=== PATIENT | female | born 1960 | race Two or more races ===

== ENCOUNTER 2020-01-27 12:23 | Emergency (ER) | payer OTHER ==
[~2020-01-27] VITALS: Ht 165.1 cm; Wt 83.5 kg
[2020-01-27] MEDS ORDERED: CARTIA XT300 MG (12:32)
[2020-01-27] MEDS ORDERED: TAMOXIFEN CITRA20 MG (12:33)
== END 2020-01-27 16:29 | disposition home or self-care (01) ==
LOC: ER 12:23
DX: N92.5 Other specified irregular menstruation (principal); D25.2 Subserosal leiomyoma of uterus